=== PATIENT | male | born 1950 ===

== ENCOUNTER 2017-03-01 12:24 | Inpatient (IN) | payer MEDICARE ==
--- NOTE | 2017-03-01 13:23 | ED PDOC ---
HPI: General Adult Time Seen by Provider: 03/01/17 12:36 Chief Complaint (Nursing): Upper Extremity Problem/Injury Chief Complaint (Provider): Left arm pain, chest pain History Per: Patient History/Exam Limitations: no limitations Onset/Duration Of Symptoms: Days (2) Current Symptoms Are (Timing): Still Present Additional Complaint(s): The patient is a 66yo male, PMHx of hypertension, hyperlipidemia, hypercholesterolemia, presents to the ED for evaluation of left sided arm numbness and left chest pain present for the past two days. Reports associated nausea, intermittent shortness of breath. The patient reports taking aspirin at home (unknown dosage) and denies any palpitations. He offers no additional medical complaints. Past Medical History Reviewed: Historical Data, Nursing Documentation, Vital Signs Vital Signs: Last Vital Signs Temp 97.8 F 03/03/17 19:40 Pulse 81 03/03/17 19:40 Resp 20 03/03/17 19:40 BP 159/88 H 03/03/17 19:40 Pulse Ox 99 03/03/17 19:40 - Medical History PMH: HTN, Hypercholesterolemia, Hyperlipidemia Denies: HIV - Surgical History Surgical History: Appendectomy, Hernia Repair - Family History Family History: States: Unknown Family Hx - Immunization History Hx Tetanus Toxoid Vaccination: No Hx Influenza Vaccination: No Hx Pneumococcal Vaccination: No - Home Medications Home Medications: Ambulatory Orders Medication Instructions Recorded Aspirin [Aspirin Chewable] 81 mg PO DAILY #0 chew 02/10/15 Atorvastatin [Lipitor] 10 mg PO DAILY #0 tab 02/10/15 Enalapril Maleate [Vasotec] 10 mg PO BID 03/01/17 Cyanocobalamin [Vitamin B12 1000 1,000 mcg IM DAILY vial 03/03/17 mcg/ml Inj] - Allergies Allergies/Adverse Reactions: Allergies Allergy/AdvReac Type Severity Reaction Status Date / Time No Known Allergies Allergy Verified 03/01/17 12:26 Review of Systems ROS Statement: Except As Marked, All Systems Reviewed And Found Negative Cardiovascular: Positive for: Chest Pain. Negative for: Palpitations Respiratory: Positive for: Shortness of Breath (intermittent) Gastrointestinal: Positive for: Nausea Physical Exam - Reviewed Nursing Documentation Reviewed: Yes Vital Signs Reviewed: Yes - Physical Exam Appears: Positive for: Well, Non-toxic, No Acute Distress Head Exam: Positive for: ATRAUMATIC, NORMAL INSPECTION, NORMOCEPHALIC Skin: Positive for: Normal Color, Warm, DRY Eye Exam: Positive for: EOMI, Normal appearance, PERRL ENT: Positive for: Normal ENT Inspection Neck: Positive for: Normal, Painless ROM, Supple Cardiovascular/Chest: Positive for: Regular Rate, Rhythm Respiratory: Positive for: Normal Breath Sounds. Negative for: Respiratory Distress Gastrointestinal/Abdominal: Positive for: Normal Exam Back: Positive for: Normal Inspection Extremity: Positive for: Normal ROM, Other (LUE neurovascular sense intact). Negative for: Deformity, Swelling Neurologic/Psych: Positive for: Alert, Oriented. Negative for: Motor/Sensory Deficits - Laboratory Results Result Diagrams: 03/03/17 05:40 03/03/17 05:40 - ECG ECG: Positive for: Interpreted By Me, Viewed By Me ECG Rhythm: Positive for: Sinus Rhythm. Negative for: ST/T Changes Rate: 93 O2 Sat by Pulse Oximetry: 99 (RA) Pulse Ox Interpretation: Normal Medical Decision Making Medical Decision Making: Time: 1245 Impression: Chest pain, left arm pain Plan: -- Labs -- EKG -- Chest x-ray -- CT Cervical spine Reassess Time: 1424 CT C-Spine Impression: No evidence of acute fracture or subluxation. Evidence of focal central disc herniation at C4-C5 with mild central canal stenosis and likely mild cord compression. Mild multilevel degenerative changes including small anterior osteophyte formation. If indicated, further evaluation may be considered with MRI. Time: [address] Joseph; patient to be admitted to telemetry for chest pain. Scribe Attestation: Documented by Martine Ornelas acting as a scribe for Kami Rico MD. Provider Attestation: All medical record entries made by the Scribe were at my direction and personally dictated by me. I have reviewed the chart and agree that the record accurately reflects my personal performance of the history, physical exam, medical decision making, and the department course for this patient. I have also personally directed, reviewed, and agree with the discharge instructions and disposition. Disposition - Clinical Impression Clinical Impression: Chest pain - Patient ED Disposition Is Patient to be Admitted: Yes - Disposition Disposition Time: 15:52 Condition: STABLE - Pt Status Changed To: Hospital Disposition Of: Observation - POA Present On Arrival: None
[2017-03-01 13:26] LABS: BASO % 0.7 % (0.0-2.0); EOS # 0.1 K/uL (0.0-0.7); EOS % 1.7 % (0.0-4.0); HEMOGLOBIN 12.3 g/dL (12.0-18.0); LYMPH # 1.1 K/uL (1.0-4.3); LYMPH % 13.9 % (20.0-40.0); MEAN CELL VOLUME 96.4 fl (80.0-94.0); MEAN CORPUSCULAR HEMOGLOBIN 32.9 pg (27.0-31.0); MEAN CORPUSCULAR HGB CONC 34.1 g/dL (33.0-37.0); MEAN PLATELET VOLUME 6.7 fl (7.2-11.7); MONO # 0.4 K/uL (0.0-0.8); MONO % 5.5 % (0.0-10.0); NEUT # 5.9 K/uL (1.8-7.0); NEUT % 78.2 % (50.0-75.0); RBC 3.74 Mil/uL (4.40-5.90); RED CELL DISTRIBUTION WIDTH 12.6 % (11.5-14.5); WHITE BLOOD COUNT 7.6 K/uL (4.8-10.8)
--- NOTE | 2017-03-01 13:27 | RAD ---
HISTORY: CP COMPARISON: Chest x-ray performed 04/24/16 TECHNIQUE: Chest, one view. FINDINGS: External cardiac monitoring leads. LUNGS: Mild left apical pleural thickening. No focal consolidation. Please note that chest x-ray has limited sensitivity for the detection of pulmonary masses. PLEURA: No significant pleural effusion identified. No definite pneumothorax . CARDIOVASCULAR: Heart size appears within normal limits. Atherosclerotic calcifications of the aortic knob. OSSEOUS STRUCTURES: Mild degenerative changes. VISUALIZED UPPER ABDOMEN: Unremarkable. OTHER FINDINGS: None. IMPRESSION: No acute findings. See above.
[2017-03-01 13:43] LABS: INR 0.9 (0.9-1.2); PARTIAL THROMBOPLASTIN TIME 31.4 Seconds (25.6-37.1)
[2017-03-01 13:48] LABS: ALB/GLOB RATIO 1.3 (1.0-2.1); ALBUMIN 4.8 g/dL (3.5-5.0); ALT/SGPT 88 U/L (21-72); AST/SGOT 101 U/L (17-59); BLOOD UREA NITROGEN 8 mg/dl (9-20); CALCIUM 9.4 mg/dL (8.4-10.2); GFR AFRICAN-AMERICAN > 60; GFR NON-AFRICAN AMERICAN > 60
--- NOTE | 2017-03-01 14:25 | CT ---
CT cervical spine without IV contrast Indication: Left upper extremity numbness Comparison: None available Technique: Axial computed tomography images were obtained of the cervical spine without the use of intravenous contrast. Coronal and sagittal reformatted images were created and reviewed. This CT exam was performed using 1 or more of the falling dose reduction techniques: Automated exposure control, adjustment of the MAA and/or kV according to patient size, and/or use of iterative reconstruction technique. Radiation dose: Total exam DLP = 974.90 mGy-cm. Findings: There is no evidence of acute fracture or subluxation. Mild multilevel degenerative changes including small anterior osteophyte formation. There is evidence of focal central disc herniation at C4-C5 with mild central canal stenosis and likely mild cord compression at this level. There is preserved alignment, vertebral body height, intervertebral disc spaces. The prevertebral soft tissues and spinolaminar lines appear intact. The lateral masses are preserved. The dens tip is intact. There is proper alignment of the lateral masses of C1 with the C2 vertebral body. Included portions of the thyroid gland appear unremarkable. Included portions of lung apices demonstrates mild apical scarring. Bilateral carotid artery calcifications. Impression: No evidence of acute fracture or subluxation. Evidence of focal central disc herniation at C4-C5 with mild central canal stenosis and likely mild cord compression. Mild multilevel degenerative changes including small anterior osteophyte formation. If indicated, further evaluation may be considered with MRI.
--- NOTE | 2017-03-02 08:45 | CARD ---
APPROVED REPORT EKG Measurement Heart [id number] <Conclusion> Normal sinus rhythm Normal ECG
[2017-03-02] MEDS: Enoxaparin 40 mg Syringe SC SCH (09:05)
--- NOTE | 2017-03-02 11:22 | CP.PCM.CON ---
History of Present Illness - History of Present Illness History of Present Illness: I was asked to evaluate patient by Dr. Joseph. Patient is a 88 year old male with PMH HTN, hypercholesterolemia who presents with chest pain. The patient describes left sided chest pain and pressure which initially began 2 days ago. The symptoms started while at rest, nd radiated to the shoulder. His symptoms initally resolved spontaneously howevere with the second episode of the same chest pressure he came to the hospital. He is currently chest pain free. Review of Systems - Constitutional Constitutional: absent: As Per HPI, Anorexia, Chills, Daytime Sleepiness, Excessive Sweating, Fatigue, Fever, Frequent Falls, Headache, Increased Appetite , Lethargy, Malaise, Night Sweats, Snoring, Sleep Apnea, Weight Gain, Weight Loss, Weakness, Other - EENT Eyes: absent: As Per HPI, Blind Spots, Blurred Vision, Change in Vision, Decreased Night Vision, Diplopia, Discharge, Dry Eye, Exophthalmos, Floaters, Irritation, Itchy Eyes, Loss of Peripheral Vision, Pain, Photophobia, Requires Corrective Lenses, Sees Flashes, Spots in Vision, Tunnel Vision, Other Visual Disturbances, Loss of Vision, Other Nose/Mouth/Throat: absent: As Per HPI, Epistaxis, Nasal Congestion, Nasal Discharge, Nasal Obstruction, Nasal Trauma, Nose Pain, Post Nasal Drip, Sinus Pain, Sinus Pressure, Bleeding Gums, Change in Voice, Dental Pain, Dry Mouth, Dysphagia, Halitosis, Hoarsness, Lip Swelling, Mouth Lesions, Mouth Pain, Odynophagia, Sore Throat, Throat Swelling, Tongue Swelling, Facial Pain, Neck Pain, Neck Mass, Other - Cardiovascular Cardiovascular: Chest Pain - Respiratory Respiratory: absent: As Per HPI, Cough, Dyspnea, Hemoptysis, Dyspnea on Exertion , Wheezing, Snoring, Stridor, Pain on Inspiration, Chest Congestion, Excessive Mucous Production, Change in Mucous Color, Pain with Coughing, Other - Gastrointestinal Gastrointestinal: absent: As Per HPI, Abdominal Pain, Belching, Bloating, Change in Bowel Habits, Change in Stool Character, Coffee Ground Emesis, Constipation, Cramping, Diarrhea, Dyspepsia, Dysphagia, Early Satiety, Excessive Flatus, Fecal Incontinence, Heartburn, Hematemesis, Hematochezia, Loose Stools, Melena, Nausea, Odynophagia, Temesmus, Vomiting, Other - Genitourinary Genitourinary: absent: As Per HPI, Change in Urinary Stream, Difficulty Urinating, Dysuria, Flank Pain, Hematuria, Pyuria, Nocturia, Urinary Incontinence, Urinary Frequency, Urinary Hesitance, Urinary Urgency, Voiding Freq/Small Amts, Freq UTI, Hx Renal/Bladder Calculi, Hx /Renal Surgery, Bladder Distension, Other - Musculoskeletal Musculoskeletal: absent: As Per HPI, Abnormal Gait, Arthralgias, Atrophy, Back Pain, Deformity, Joint Swelling, Limited Range of Motion, Loss of Height, Muscle Cramps, Muscle Weakness, Myalgias, Neck Pain, Numbness, Radiating Pain into Limb, Stiffness, Tingling, Other - Integumentary Integumentary: absent: As Per HPI, Acne, Alopecia, Bleeding Lesions, Change in Hair, Change in Nails, Change in Pigmentation, Changing Lesions, Dry Skin, Erythema, Furuncle, Hirsutism, Lesions, New Lesions, Non-Healing Lesions, Photosensitivity, Pruritus, Rash, Skin Pain, Skin Ulcer, Sores, Striae, Swelling , Unusual Bruising, Wounds, Jaundice, Other - Neurological Neurological: absent: As Per HPI, Abnormal Gait, Abnormal Hearing, Abnormal Movements, Abnormal Speech, Behavioral Changes, Burning Sensations, Confusion, Convulsions, Disequilibrium, Dizziness, Numbness, Focal Weakness, Frequent Falls , Headaches, Lack of Coordination, Loss of Vision, Memory Loss, Paresthesias, Radicular Pain, Restless Legs, Sensory Deficit, Syncope, Tingling, Tremor, Vertigo, Weakness, Other Visual Disturbances, Other - Psychiatric Psychiatric: absent: As Per HPI, Abnormal Sleep Pattern, Anhedonia, Anxiety, Auditory Hallucinations, Behavioral Changes, Change in Appetite, Change in Libido, Confusion, Depression, Difficulty Concentrating, Hallucinations, Homicidal Ideation, Hopelessness, Irritability, Memory Loss, Mood Swings, Panic Attacks, Paranoia, Suicidal Ideation, Visual Hallucinations, Tactile Hallucinations, Other - Endocrine Endocrine: absent: As Per HPI, Change in Body Appearance, Change in Libido, Cold Intolorance, Deepening of Voice, Excessive Sweating, Fatigue, Flushing, Heat Intolorance, Increase in Ring/Shoe/Hat Size, Palpitations, Polydipsia, Polyphagia, Polyuria, Other - Hematologic/Lymphatic Hematologic: absent: As Per HPI, Easy Bleeding, Easy Bruising, Lymphadenopathy, Other Past Patient History - Infectious Disease Hx of Infectious Diseases: None - Past Medical History & Family History Past Medical History?: Yes - Past Social History Smoking Status: Never Smoked - CARDIAC Hx Cardiac Disorders: Yes Hx Hypercholesterolemia: Yes Hx Hypertension: Yes - PULMONARY Hx Respiratory Disorders: No - NEUROLOGICAL Hx Neurological Disorder: No - HEENT Hx HEENT Problems: Yes Other/Comment: wears glasses - RENAL Hx Chronic Kidney Disease: No - ENDOCRINE/METABOLIC Hx Endocrine Disorders: No - HEMATOLOGICAL/ONCOLOGICAL Hx Blood Disorders: No Hx Human Immunodeficiency Virus (HIV): No - INTEGUMENTARY Hx Dermatological Problems: No - MUSCULOSKELETAL/RHEUMATOLOGICAL Hx Musculoskeletal Disorders: No Hx Falls: No - GASTROINTESTINAL Hx Gastrointestinal Disorders: No - GENITOURINARY/GYNECOLOGICAL Hx Genitourinary Disorders: No - PSYCHIATRIC Hx Psychophysiologic Disorder: No Hx Substance Use: No - SURGICAL HISTORY Hx Appendectomy: Yes Other/Comment: hernia repair - ANESTHESIA Hx Anesthesia: Yes Hx Anesthesia Reactions: No Hx Malignant Hyperthermia: No Meds Allergies/Adverse Reactions: Allergies Allergy/AdvReac Type Severity Reaction Status Date / Time No Known Allergies Allergy Verified 03/01/17 12:26 - Medications Medications: Current Medications Aspirin (Aspirin Chewable) 81 mg PO DAILY [facility] Last Admin: 03/02/17 09:05 Dose: 81 mg Atorvastatin Calcium (Lipitor) 10 mg PO DAILY [facility] Last Admin: 03/02/17 09:05 Dose: 10 mg Enalapril Maleate (Vasotec) 10 mg PO BID [facility] Last Admin: 03/02/17 09:05 Dose: 10 mg Enoxaparin Sodium (Lovenox) 40 mg SC DAILY [facility] PRN Reason: Protocol Last Admin: 03/02/17 09:05 Dose: 40 mg Physical Exam - Constitutional Appears: Non-toxic - Head Exam Head Exam: NORMAL INSPECTION - Eye Exam Eye Exam: Normal appearance - ENT Exam ENT Exam: Mucous Membranes Moist - Neck Exam Neck exam: Positive for: Full Rom - Respiratory Exam Respiratory Exam: NORMAL BREATHING PATTERN - Cardiovascular Exam Cardiovascular Exam: REGULAR RHYTHM - GI/Abdominal Exam GI & Abdominal Exam: Normal Bowel Sounds - Rectal Exam Rectal Exam: Deferred - Extremities Exam Extremities exam: Negative for: pedal edema - Back Exam Back exam: NORMAL INSPECTION - Neurological Exam Neurological exam: Alert, Oriented x3 - Psychiatric Exam Psychiatric exam: Normal Affect - Skin Skin Exam: Normal Color Results - Vital Signs Recent Vital Signs: Last Vital Signs Temp 98 F 03/02/17 08:08 Pulse 59 L 03/02/17 08:08 Resp 18 03/02/17 08:08 BP 122/77 03/02/17 08:08 Pulse Ox 99 03/02/17 08:08 - Labs Result Diagrams: 03/01/17 13:15 03/01/17 13:15 Labs: Laboratory Results - last 24 hr 03/01/17 03/02/17 21:20 05:30 Troponin I < 0.0120 < 0.0120 Vitamin B12 272 TSH 3rd Generation 3.88 - EKG Data EKG Interpreted by: Myself EKG shows normal: Sinus rhythm Assessment & Plan (1) Chest pain Assessment and Plan: patient has ruled out for myocardial infarction. However he has symptoms which are concerning for unstable angina and CAD. I recommend inpatient nuclear perfusion imaging. Status: Acute (2) Hypertension Assessment and Plan: blood pressure control Status: Acute
--- NOTE | 2017-03-02 16:35 | CP.PCM.CON ---
History of Present Illness - History of Present Illness History of Present Illness: left arm pain 3 days consult dictated Past Patient History - Infectious Disease Hx of Infectious Diseases: None - Past Medical History & Family History Past Medical History?: Yes - Past Social History Smoking Status: Never Smoked - CARDIAC Hx Cardiac Disorders: Yes Hx Hypercholesterolemia: Yes Hx Hypertension: Yes - PULMONARY Hx Respiratory Disorders: No - NEUROLOGICAL Hx Neurological Disorder: No - HEENT Hx HEENT Problems: Yes Other/Comment: wears glasses - RENAL Hx Chronic Kidney Disease: No - ENDOCRINE/METABOLIC Hx Endocrine Disorders: No - HEMATOLOGICAL/ONCOLOGICAL Hx Blood Disorders: No Hx Human Immunodeficiency Virus (HIV): No - INTEGUMENTARY Hx Dermatological Problems: No - MUSCULOSKELETAL/RHEUMATOLOGICAL Hx Musculoskeletal Disorders: No Hx Falls: No - GASTROINTESTINAL Hx Gastrointestinal Disorders: No - GENITOURINARY/GYNECOLOGICAL Hx Genitourinary Disorders: No - PSYCHIATRIC Hx Psychophysiologic Disorder: No Hx Substance Use: No - SURGICAL HISTORY Hx Appendectomy: Yes Other/Comment: hernia repair - ANESTHESIA Hx Anesthesia: Yes Hx Anesthesia Reactions: No Hx Malignant Hyperthermia: No Meds Allergies/Adverse Reactions: Allergies Allergy/AdvReac Type Severity Reaction Status Date / Time No Known Allergies Allergy Verified 03/01/17 12:26 - Medications Medications: Current Medications Aspirin (Aspirin Chewable) 81 mg PO DAILY [facility] Last Admin: 03/02/17 09:05 Dose: 81 mg Atorvastatin Calcium (Lipitor) 10 mg PO DAILY [facility] Last Admin: 03/02/17 09:05 Dose: 10 mg Enalapril Maleate (Vasotec) 10 mg PO BID [facility] Last Admin: 03/02/17 09:05 Dose: 10 mg Enoxaparin Sodium (Lovenox) 40 mg SC DAILY [facility] PRN Reason: Protocol Last Admin: 03/02/17 09:05 Dose: 40 mg Results - Vital Signs Recent Vital Signs: Last Vital Signs Temp 97.9 F 03/02/17 16:02 Pulse 73 03/02/17 16:02 Resp 18 03/02/17 16:02 BP 125/74 03/02/17 16:02 Pulse Ox 99 03/02/17 16:02 - Labs Result Diagrams: 03/01/17 13:15 03/01/17 13:15 Assessment & Plan (1) Cervical radiculopathy at C6 Assessment and Plan: no signs of myelopathy MRI am continue the pesent managment emg/ncv as op not a surgical candidate Status: Acute
[2017-03-03 06:57] LABS: HEMOGLOBIN 12.3 g/dL (12.0-18.0); MEAN CELL VOLUME 95.6 fl (80.0-94.0); MEAN CORPUSCULAR HEMOGLOBIN 33.3 pg (27.0-31.0); MEAN CORPUSCULAR HGB CONC 34.8 g/dL (33.0-37.0); RBC 3.68 Mil/uL (4.40-5.90); RED CELL DISTRIBUTION WIDTH 12.9 % (11.5-14.5); WHITE BLOOD COUNT 6.3 K/uL (4.8-10.8)
[2017-03-03 07:34] LABS: ALB/GLOB RATIO 1.2 (1.0-2.1); ALBUMIN 4.5 g/dL (3.5-5.0); ALT/SGPT 86 U/L (21-72); AST/SGOT 79 U/L (17-59); BLOOD UREA NITROGEN 12 mg/dl (9-20); CALCIUM 9.2 mg/dL (8.4-10.2); GFR AFRICAN-AMERICAN > 60; GFR NON-AFRICAN AMERICAN > 60
[2017-03-03] MEDS: Enoxaparin 40 mg Syringe SC SCH (08:56)
--- NOTE | 2017-03-03 15:14 | MRI ---
PROCEDURE: MRI of the cervical spine dated 03/03/2017. HISTORY: Cervical myelopathy. COMPARISON: Comparison made with CT scan cervical spine dated 03/01/2017. TECHNIQUE: Multiecho multiplanar sequences were performed through the cervical spine without the use of intravenous contrast. . Note that the exam is limited by motion artifact. FINDINGS: The current study reveals no acute compression fractures no retropulsed fragments. Vertebral bodies exhibit normal stature and alignment. Facets normally aligned. At the C4-C5 level, there is relatively adequate disc height and mild disc desiccation. Moderate-sized central and bilateral of presumed acute disc herniation results in moderate cord compression and mild central canal stenosis. Note that the overall pre-existing central canal excluded disc herniations quite capacious. . There appears to be superior subligamentous extension of disc over short distance dorsal to the inferior 1/2-- 1/ 3 of the C4 segment. Moderate left facet arthropathy and mild right facet arthropathy. Hypertrophic left greater than right. Minimal degenerative squaring of the uncovertebral joints left greater than right. . Right exit foramen appears adequate. Left exit foramen appears narrowed though the narrowing appears more significant on CT scan. Questionable subtle increased T2 signal within the cervical spinal cord at this level. Findings could represent artifact however mild venous congestion or edema. Clinical correlation recommended. At the C5-C6 level, there is mild disc desiccation and minor posterior disc space narrowing. Small central and bilateral disc bulge indents the ventral surface of the thecal sac and appears to minimally indent the ventral surface of the cord. Overall central canal appears adequate at this level. The uncovertebral joints are mildly hypertrophic left greater than right. Moderate left facet arthropathy and mild right facet arthropathy. Right exit foramen is marginal to adequate on the left exit foramen appears narrowed. At the C6-C7 level, there is mild disc desiccation however disc space height is relatively maintained. Small broad-based disc bulge ridge complex indents the ventral surface of thecal sac reaching and minimally if at all flattening the ventral surface of the spinal cord. The overall central canal at this level is minimally narrowed. Facet joints are also hypertrophic left greater than right. Exit foramina appear adequate on the left and marginal to slightly narrowed on the right. At the C3-C4 level, there is disc desiccation. Disc space height maintained. Small central and bilateral (left slightly larger than right) focal disc bulge contiguous with mildly hypertrophic uncovertebral joints left greater than right. The disc indents the ventral surface of the thecal sac though does not cause significant canal compromise nor cord compression. The facets are mildly hypertrophic left greater than right. Right exit foramen is adequate. Left exit foramen is mildly stenotic. At the C2-C3 level, there is mild age related disc desiccation. Disc space height is relatively maintained. No disc herniation or significant disc bulge. Uncovertebral joints exhibit minimal degenerative squaring. Left facet is hypertrophic with mild overgrowth of right facet. Exit foramina appear marginal to minimally narrowed on the left and marginal to adequate on the right. Impression: This level limited motion degraded study. There is a moderate sized disc herniation at the C4-C5 level with some mild superior subligamentous extension of disc material over short distance as detailed above. The disc does result in cord compression. Questionable mild increased T2 signal change within the cervical spinal cord at level; rule out artifact versus mild venous congestion or mild edema. Mild multilevel degenerative spondylosis seen at the remaining levels of. See above discussion for additional the details and findings. Note that these findings were discussed with 4 Umair Finney at approximately 3:05P.m written down and read back verification.
--- NOTE | 2017-03-03 16:14 | CARD ---
APPROVED REPORT Protocol: LEXISCAN Test Type: Stress Nuclear Medications: ASA 81mg, Atorvastatin 10mg, Enalapril Maleate 10mg Medical History: Hypertension, Hyperlipidemia, Hypercholesterolemia Target HR: 154 bpm Resting ECG: normal Resting Heart Rate: 75 bpm Resting Blood Pressure: 177/85mmHg submaximum (85%): 131 bpm TEST SUMMARY PREINJECTPRE-INJEC07:[id number]/85.0. [id number]/85.0. INJECTIONNS FLUSH00:[id number]/81.0. INJECTIONNUC MED00:[id number]/81.0. [id number]/78.0. PROCEDURE Pharmacologic stress testing was performed using 0.4mg per 5ml of regadenoson given intravenously over 7-10 seconds. POST EXERCISE Reason for Termination: completed the test Target HR: No Max HR: 92 bpm 68% of Maximum Predicted HR: 154 bpm Exercise duration: 01:00 min:sec, 0 Stage Exercise capacity: 1.0METs Max Blood Pressure: 182/88mmHg Blood Pressure response to exercise: pharmacological Heart Rate response to exercise: pharmacological Chest Pain: No, none Angina index: 0 Arrhythmia: No, none ST Change: No, none Deviation: 0 mm Clinical Indications Under Appropriate Use Criteria Cest pain and left arm numbness Stress EKG Interpretation Normal pharmacological portion of the stress test. EXAM: Myocardial Perfusion REST/STRESS Image QualityGood Imaging Protocol The imaging protocol used to acquire images was Rest Tc-99m/stress Tc-99m 1 day Rest Spect myocardial perfusion imaging was performed in supine position 60 minutes following the injection of 10 mCi of Tc-99 Myoview. Time of rest injection: 8:26 Time of rest imagin:27 At peak stress, the patient was injected intravenously with 30mCi of Tc-99 tetrofosmin after an infusion time of minutes and seconds. Time of stress injection: 11:43 Time of stress imagin:00 Gated Stress Spect was performed 90 minutes after intravenous Tc-99 Myoview injection. The images were gated to evaluate regional wall motion and calculate ventricular ejection fraction. NUCLEAR IMAGE INTERPRETATION The rest and stress images show normal perfusion, normal contraction and thickening. LV Perfusion The perfusion of the left ventricle was normal on the standard three tomographic images and the raw Bullseye plot images. Wall Motion normal LVEF of 73% CONCLUSION 1. The patient is a 66 year old male referred for a pharmacological stress test after being admitted to [facility] for chest pain and left arm pain. He also has a history of hypertension and hyperlipidemia. His medicines include aspirin, enalapril and atorvastatin. The resting EKG shows normal sinus rhythm. The patient was hooked up to a continuous monitoring specialist and lexiscan at a dose of 0.4 mg/5ml was injected intravenously. The patient tolerated the lexiscan well without any chest pain or significant EKG changes. The vital signs were stable and there weren't any side effects from the lexiscan. The nuclear scans showed normal perfusion of the left ventricle. The LVEF on the gated study was 73%. 2. Impression: Negative pharmacological stress test for ischemia. LVEF of 73%. Recommendation medical treatment0
--- NOTE | 2017-03-03 18:51 | CP.PCM.PN ---
Subjective - Date & Time of Evaluation Date of Evaluation: 03/03/17 Time of Evaluation: 18:30 - Subjective Subjective: patient is doing well without chest pain. Objective - Vital Signs/Intake and Output Vital Signs (last 24 hours): Temp Pulse Resp BP Pulse Ox 98.2 F 95 H 18 150/85 100 03/03/17 15:52 03/03/17 15:52 03/03/17 15:52 03/03/17 15:52 03/03/17 15:52 - Medications Medications: Current Medications Aspirin (Aspirin Chewable) 81 mg PO DAILY [facility] Last Admin: 03/03/17 12:47 Dose: 81 mg Atorvastatin Calcium (Lipitor) 10 mg PO DAILY [facility] Last Admin: 03/03/17 12:47 Dose: 10 mg Cyanocobalamin (Vitamin B12 1000 Mcg/Ml Inj) 1,000 mcg IM DAILY [facility] Last Admin: 03/03/17 12:47 Dose: 1,000 mcg Enalapril Maleate (Vasotec) 10 mg PO BID [facility] Last Admin: 03/03/17 17:09 Dose: 10 mg Enoxaparin Sodium (Lovenox) 40 mg SC DAILY [facility] PRN Reason: Protocol Last Admin: 03/03/17 08:56 Dose: 40 mg - Labs Labs: 03/03/17 05:40 03/03/17 05:40 PT 10.0 Seconds (9.8-13.1) 03/01/17 13:15 INR 0.9 (0.9-1.2) 03/01/17 13:15 APTT 31.4 Seconds (25.6-37.1) 03/01/17 13:15 - Constitutional Appears: Non-toxic - Head Exam Head Exam: NORMAL INSPECTION - Eye Exam Eye Exam: Normal appearance - ENT Exam ENT Exam: Mucous Membranes Moist - Neck Exam Neck Exam: Full ROM - Respiratory Exam Respiratory Exam: NORMAL BREATHING PATTERN - Cardiovascular Exam Cardiovascular Exam: REGULAR RHYTHM - GI/Abdominal Exam GI & Abdominal Exam: Normal Bowel Sounds - Rectal Exam Rectal Exam: Deferred - Back Exam Back Exam: NORMAL INSPECTION - Neurological Exam Neurological Exam: Alert - Psychiatric Exam Psychiatric exam: Normal Affect - Skin Skin Exam: Normal Color Assessment and Plan (1) Chest pain Assessment & Plan: nuclear stress test is normal. The left ventricular function is normal. Patient is stable for discharge. Status: Acute (2) Hypertension Assessment & Plan: blood pressure control Status: Acute
[2017-03-03 19:41] VITALS: BP 159/88; RESP 20; TEMP 97.8; O2SAT 99
--- NOTE | 2017-03-04 05:17 | CON ---
DATE OF CONSULT: 03/03/2017 REASON FOR CONSULTATION: Herniated disk at C4-C5. HISTORY OF PRESENT ILLNESS: The patient is a 66-year-old gentleman who is admitted to the hospital a couple of days ago, having had a 2-day history of left-sided chest pain with numbness in his left arm. He had some associated shortness of breath and nausea as well. During his workup, a CAT scan of the neck was done, which showed a herniated disk at C4-C5. Subsequent MRI was done as well and a consultation was requested. The patient states he has no complaints of neck pain whatsoever. He states that the only time he had any symptoms of left arm was when he had the associated left-sided chest pain. PAST MEDICAL HISTORY: Significant for hypertension, hypercholesterolemia, and hyperlipidemia. MEDICATIONS AT HOME: Include baby aspirin, Lipitor, and Vasotec. ALLERGIES: No known medical allergies. PAST SURGICAL HISTORY: Significant for herniorrhaphy as well as appendectomy. PHYSICAL EXAMINATION: He has full flexion, extension, lateral rotation of his neck without any complaints whatsoever. He moves both upper extremities fully and actively. Sensation is intact to light touch everywhere. He has excellent motor strength, 5/5 in all groups tested, and very strong icer air conditioning strength. He has good distal pulses. No other abnormalities noted. MRI shows a small central disk at C4-C5 with some mild compression of the cord. IMPRESSION: Herniated disk at C4-C5. It is uncertain how long this abnormality has been there, but the patient is completely asymptomatic at this time. Therefore, this can be followed as an outpatient. Certainly, he is at slight increased risk for damage to the spinal cord with some significant traumatic event, but again, at this point with him undergoing his cardiac workup and being completely asymptomatic, there is no reason to consider any other intervention at this time. Thank your for allowing me to participate in the care of your patient. Abdullahi Sanchez MD
--- NOTE | 2017-03-04 09:01 | CON ---
DATE: 03/02/2017 The patient's room number 418. ATTENDING PHYSICIAN: Dr. Louie Joseph REASON FOR CONSULTATION: Left arm numbness. CHIEF COMPLAINT: The patient was brought into [facility] with history of three days of left arm numbness and pain with chest pain. At that point, I was called in to evaluate him for further management. HISTORY OF PRESENT ILLNESS: Mr. Wilbert Mckeon is a 66-year-old right-handed male presenting with three days history of episodic left arm pain. He described the pain traveling down from his shoulder down to his second and third digit. Sometimes the pain traveling down to the left side of the chest and lateral part of the chest wall. This pain not associating with shortness of breath or palpitations. However, he has some sweating episodes due to this problem. There is pain scale of 6/10. He got a similar episode a year ago, which lasted for about few minutes and then disappeared. No history of neck pain. No history of fall. No history of involved in automobile accident or work related injuries, having been treated by chiropractor in the past. PAST MEDICAL HISTORY: Hypertension and dyslipidemia. SOCIAL HISTORY: Denies smoking. No history of alcohol use. MEDICATIONS: Aspirin, atorvastatin,Lovenox and enalapril. REVIEW OF SYSTEMS: As per H&P. PHYSICAL EXAMINATION VITAL SIGNS: Blood pressure 125/74, pulse91, respiratory rate 18, temperature 97.9, pulse rate 73 and regular. NECK: Supple. No carotid bruits. CARDIOPULMONARY: Regular. LUNGS: Bilateral air entry. EXTREMITIES: No edema on legs. NEUROLOGIC: He is awake, alert and oriented to person, place and time. Speech is clear. within normal. Cranial nerves examination which include intact pupil, reactive to light. Extraocular movements are normal. No nystagmus. No facial or sensory deficit. No facial asymmetry. Hearing is normal. Tongue is midline. Good grasp. MOTOR: No drift. symmetric on either sides. Deep tendon reflexes. Right biceps 2+ and left side 1. Right brachial radialis 2+ and left side is absent. Triceps 3+ on the right side and 2+ on the left side. Knees are 2+. Both ankles are trace. Plantars are downgoing. SENSORY EXAMINATION: No clear evidence of dermatomal sensory loss. Coordination; [id number] intact. Gait is normal. CONCLUSION: Upon reviewing his neurological examination, Mr. Wilbert Mckeon presenting with left C6 radiculopathy without any myelopathy signs at present. LABORATORY DATA: His CT of the cervical spine was reported as herniated disc at C4 and C5 level with mild cord impingement. However, he does have some cervical stenosis also noted at the same level. There is clear neuroforaminal stenosis on the CAT scan findings. Blood workup: WBC 7.6, hemoglobin 12.3, hematocrit 36.1, platelet 336. PT 10.0, INR 0.9 and PTT 31.4. Sodium 137, potassium 5.0, chloride 101, bicarbonate 26, BUN 8, creatinine 0.8, GFR more than 60. Troponin 0.012. B12 272. TSH 3.88. RECOMMENDATION: 1. If the patient is clinically stable and if medically is also clear, he can go home and MRI can be done as an outpatient. However, he stays in the hospital, definitely the patient should have MRI of the cervical spine before the discharge. 2. After diagnostic surgeries including nerve conducting studies and electromyography which can be done to assess the extend of his pathology, which can be done as an outpatient. 3. As for the pain control, the patient is tolerating the current way of management. 4. Considering his clinical presentation, the patient is not a candidate for neurosurgical intervention. 5. If everything is stable, the patient will follow with me as an outpatient. Dudley Cruz MD MTDAlvarado
--- NOTE | 2017-03-04 09:55 | DS ---
NEUROLOGICAL PROBLEMS: Abnormal CAT scan of the neck, possible cervical radiculopathy. VITAL SIGNS: Blood pressure 150/85; mean arterial pressure of 106; respiratory rate 18; temperature 98.2; pulse rate 95, regular. The patient does not show any neck pain. No focal weakness. No chest pain also. The patient's examination unchanged compared with my yesterday's exam. The patient does not have any clinical evidence of radiculopathy or myelopathy at present. MRI of the cervical spine being reviewed by me, which showed C4-C5 herniated disk with impingement of the cord. The patient's examination does not correlate with the radiological findings. The patient also has evidence of disk disease from C2-C3 and C5-C6 region. When medically stable, the patient can be discharged. The patient should have electrodiagnostic studies, which include electromyography and nerve condition studies, to be done as an outpatient to assess as well his extent of disease problem in the neck. Considering he is asymptomatic patient, patient does not need any neurosurgical intervention. Dudley Cruz MD
--- NOTE | 2017-03-04 14:42 | HP ---
Patient was admitted on 03/01/2017 ID:[id number] Chief complaint: Chest pain and left upper extremity pain. History of present illness: *, hypertension. He was having left sided numbness and left sided chest pain for about 2 days, which did not improve. The patient was brought into the emergency room and was admitted for further management. Previous * for left sided chest pain, left arm numbness and occasional shortness of breath and nausea. (*Review of systems) is otherwise negative for headache, syncope, loss of consciousness, nausea, vomiting, constipation, any lower extremity pain,*, otherwise, unremarkable). Past medical history: Significant for high cholesterol and hypertension Past surgical history: Remarkable for hernia and appendix. Personal history: Patient is currently a non-smoker, no known substance abuse Medication: Patient is on Lipitor, and aspirin. Patient is not allergic to any medication. Family history: Noncontributory Physical exam: *Male. No acute distress. Vital signs, temperature 98.2, (* 20), blood pressure 128/76. HEENT exam , no heart myopathy, no new *, * Heart exam: (*As soon as ) . . Abdomen is soft, non tender, hepatomegaly, ( no fluid bowel sounds), Extremity exam: No edema, (no lower extremity tenderness), ischemia, (no paresthesia in the left upper extremity) (*Neurological) exam: Patient is alert and oriented. There is no sign of any (* acute focal, motor sensory or neurological deficit) Diagnosticdata review: Electrophoresis Came up to be 12 out of the 36, 336). PT 10, PTT 31, Sodium 37, Potassium 137, Chloride (*100), (*Hematocrit 176), (*V and eight) Cardiac negative so far. from CAT scans shows * disc herniation with mild cord compression. CHest X-rays clear, EKG does not show any acute SVT changes Impression: *Spinal/cervical cord compression. Chest pain. Rule out coronary artery (*disease), hypertension, cholesterol. At present, patient has no clinical sign of cord compression. We're awaiting neurosurgery and cardiology. Plan:*Discussed with patient KENNETH
--- NOTE | 2017-03-10 16:01 | PN ---
Dr. Louie Joseph - Progress Note HPI: Pt was seen and examined, and the consult is noted and appreciated. The neurology and cardiology consults were appreciated and noted as well. Pt [22.9__ 25.5]. Pt denies any [27.4 28.3 ], numbness, or any neurological symptoms at this time. PE: Upon physical examination the pt appears to be in NAD, vital signs are stable and the heart is normal with RRR. The lungs are clear, extremities are nontender , no clubbing, no edema and no acute ischemia. The rest of the exam is essentially unchanged. Diagnostic Data: All available diagnostic data has been reviewed and noted. [54.1 60.1] .According to the neurologist, the pt does not need any neurological surgical intervention. If there is stress pt should refer to cardiology, other than that the pt is medically stable. Louie Joseph MD
--- NOTE | 2017-03-11 12:58 | CP.PCM.PN ---
Subjective - Date & Time of Evaluation Date of Evaluation: 03/03/17 - Subjective Subjective: Pt was seen and examined, and the consult is noted and appreciated. The neurology and cardiology consults were appreciated and noted as well. Pt . Pt denies any , numbness, or any neurological symptoms at this time. Objective - Vital Signs/Intake and Output Vital Signs (last 24 hours): Temp Pulse Resp BP Pulse Ox 97.8 F 81 20 159/88 H 99 03/03/17 19:40 03/03/17 19:40 03/03/17 19:40 03/03/17 19:40 03/03/17 19:40 - Labs Labs: 03/03/17 05:40 03/03/17 05:40 PT 10.0 Seconds (9.8-13.1) 03/01/17 13:15 INR 0.9 (0.9-1.2) 03/01/17 13:15 APTT 31.4 Seconds (25.6-37.1) 03/01/17 13:15 - Additional Findings Additional findings: Upon physical examination the pt appears to be in NAD, vital signs are stable and the heart is normal with RRR. The lungs are clear, extremities are nontender , no clubbing, no edema and no acute ischemia. The rest of the exam is essentially unchanged. Assessment and Plan - Assessment and Plan (Free Text) Assessment: All available diagnostic data has been reviewed and noted. .According to the neurologist, the pt does not need any neurological surgical intervention. If there is stress pt should refer to cardiology, other than that the pt is medically stable. Patient was personally seen and examined by me in rounds with residents. Available labs and diagnostic data reviewed. Case, Patient's condition and management plan discussed with residents in rounds. Agree with resident's documentation. Plan: As ordered. Louie Joseph MD
[2017-03-11 14:09] VITALS: PULSE 93
== END 2017-03-03 20:00 | disposition home or self-care (01) | DRG 74 ==
LOC: H.ER 12:24 → H.ERHOLD 15:52 → H.TEL 18:04 → OBSVTOIN 03-02 12:01
PROVIDERS: ADMIT Internal Medicine; ATTEND Internal Medicine
DX: M54.12 Radiculopathy, cervical region (principal); M50.021 Cervical disc disorder at C4-C5 level with myelopathy; I10 Essential (primary) hypertension; R07.9 Chest pain, unspecified; E78.00 Pure hypercholesterolemia, unspecified; E78.5 Hyperlipidemia, unspecified

== ENCOUNTER 2018-01-13 12:24 | Inpatient (IN) | payer MEDICARE ==
[2018-01-13 14:59] LABS: BASO % 0.6 % (0.0-2.0); EOS % 0.5 % (0.0-4.0); HEMOGLOBIN 11.6 g/dL (12.0-18.0); LYMPH % 12.4 % (20.0-40.0); MEAN CELL VOLUME 93.2 fl (80.0-94.0); MEAN CORPUSCULAR HEMOGLOBIN 31.9 pg (27.0-31.0); MEAN CORPUSCULAR HGB CONC 34.2 g/dL (33.0-37.0); MEAN PLATELET VOLUME 7.9 fl (7.2-11.7); MONO # 0.6 K/uL (0.0-0.8); MONO % 7.4 % (0.0-10.0); NEUT # 6.1 K/uL (1.8-7.0); NEUT % 79.1 % (50.0-75.0); RBC 3.65 Mil/uL (4.40-5.90); RED CELL DISTRIBUTION WIDTH 13.1 % (11.5-14.5); WHITE BLOOD COUNT 7.8 K/uL (4.8-10.8)
[2018-01-13 15:14] LABS: ALB/GLOB RATIO 1.2 (1.0-2.1); ALBUMIN 4.4 g/dL (3.5-5.0); ALT/SGPT 63 U/L (21-72); AST/SGOT 63 U/L (17-59); BLOOD UREA NITROGEN 8 mg/dl (9-20); CALCIUM 8.8 mg/dL (8.4-10.2); GFR AFRICAN-AMERICAN > 60; GFR NON-AFRICAN AMERICAN > 60
--- NOTE | 2018-01-13 15:43 | RAD ---
HISTORY: Chest pain COMPARISON: 03/01/2017. FINDINGS: LUNGS: The lungs are well inflated and clear. PLEURA: No significant pleural effusion identified, no pneumothorax apparent. CARDIOVASCULAR: Normal. OSSEOUS STRUCTURES: No significant abnormalities. VISUALIZED UPPER ABDOMEN: Normal. OTHER FINDINGS: None. IMPRESSION: No active pulmonary disease.
--- NOTE | 2018-01-13 16:06 | ED PDOC ---
HPI: Chest Pain Time Seen by Provider: 01/13/18 13:00 Chief Complaint (Nursing): Chest Pain Chief Complaint (Provider): Chest pain History Per: Patient History/Exam Limitations: no limitations Current Symptoms Are (Timing): Still Present Additional Complaint(s): 67 year old male with a past medical history of hypertension and cholesterol presented to the ED complaining of discomfort on the chest since 9 am today with occ. palpitations, pt has no pain right now.. Patient reports his blood pressure is elevated and is concerned. Denies SOB and cough. PCP: Louie Najera Past Medical History Reviewed: Historical Data, Nursing Documentation, Vital Signs Vital Signs: Last Vital Signs Temp 98.4 F 01/15/18 10:27 Pulse 94 H 01/15/18 11:53 Resp 20 01/15/18 08:02 BP 134/71 01/15/18 10:27 Pulse Ox 100 01/15/18 11:53 - Medical History PMH: HTN, Hypercholesterolemia, Hyperlipidemia Denies: HIV, Chronic Kidney Disease - Surgical History Surgical History: Appendectomy, Hernia Repair - Family History Family History: States: Unknown Family Hx - Social History Current smoker - smoking cessation education provided: No Alcohol: None Drugs: Denies - Immunization History Hx Tetanus Toxoid Vaccination: No Hx Influenza Vaccination: No Hx Pneumococcal Vaccination: No - Home Medications Home Medications: Ambulatory Orders Medication Instructions Recorded Aspirin [Ecotrin] 81 mg PO DAILY 01/13/18 Atorvastatin [Lipitor] 10 mg PO HS 01/13/18 Enalapril Maleate [Vasotec] 10 mg PO BID 01/13/18 - Allergies Allergies/Adverse Reactions: Allergies Allergy/AdvReac Type Severity Reaction Status Date / Time No Known Allergies Allergy Verified 03/01/17 12:26 PRISCA Risk Score for UA/NSTEMI - PRISCA Risk Score Age > 64: YES 3 or more CAD Risk Factors: NO Known CAD (Stenosis greater than 50%): NO Aspirin use in past 7 days: NO Severe Angina: NO EKG ST changes greater than 0.5mm: NO Positive Cardiac Marker: NO PRISCA Score: 1 Risk %: 5% Curb-65 Severity Score - CURB-65 Severity Score Confusion: No Bun >19mg/dl (>7mmol/L): No Respiratory Rate greater than/equal to 30: No Systolic BP <90 or Diastolic BP less than/equal 60mmHg: No Age >64: Yes Curb-65 Score: 1 Percentage 30-day mortality: 2.7% Wells Criteria for PE - Wells Criteria for Pulmonary Embolism Clinical Signs and Symptoms of DVT: No P.E is #1 Diagnosis, or Equally Likely: No Heart Rate >100: No Immobilization at least 3 days;Surgery previous 4 weeks: No Previous, objectively diagnosed PE or DVT: No Hemoptysis: No Malignancy w/treatment within 6 months, or palliative: No Total Score: 0 Review of Systems ROS Statement: Except As Marked, All Systems Reviewed And Found Negative Cardiovascular: Positive for: Chest Pain Respiratory: Negative for: Cough, Shortness of Breath Physical Exam - Reviewed Nursing Documentation Reviewed: Yes Vital Signs Reviewed: Yes - Physical Exam Appears: Positive for: Non-toxic, No Acute Distress Head Exam: Positive for: ATRAUMATIC, NORMAL INSPECTION, NORMOCEPHALIC Skin: Positive for: Normal Color, Warm, Dry Eye Exam: Positive for: Normal appearance ENT: Positive for: Normal ENT Inspection Neck: Positive for: Normal, Painless ROM Cardiovascular/Chest: Positive for: Regular Rate, Rhythm. Negative for: Murmur Respiratory: Positive for: Normal Breath Sounds. Negative for: Wheezing, Respiratory Distress Gastrointestinal/Abdominal: Positive for: Normal Exam, Soft. Negative for: Tenderness Back: Positive for: Normal Inspection. Negative for: L CVA Tenderness, R CVA Tenderness Extremity: Positive for: Normal ROM Neurologic/Psych: Positive for: Alert, Oriented. Negative for: Motor/Sensory Deficits - Laboratory Results Result Diagrams: 01/13/18 14:54 01/13/18 14:54 - ECG ECG Rhythm: Positive for: Sinus Rhythm (normal) Rate: 94 O2 Sat by Pulse Oximetry: 100 (RA) Pulse Ox Interpretation: Normal Medical Decision Making Medical Decision Making: Initial Impression: Chest pain rule out CAD given cardiac risk factors Initial Plan: CMP Troponin CBC Chest X-ray first troponin negative. ekg shows nsr at 94 bmp. 16:00 Aspirin given for cardioprotective effects and patient indicates no pain at this time. PMD and resident Dr. Saha were called and patient will be admitted for rule out cardiac arrythmia on tele. Scribe Attestation: Documented by Jimmie Osuna acting as a scribe for Mukesh Jung MD. Provider Scribe Attestation: All medical record entries made by the Scribe were at my direction and personally dictated by me. I have reviewed the chart and agree that the record accurately reflects my personal performance of the history, physical exam, medical decision making, and the department course for this patient. I have also personally directed, reviewed, and agree with the discharge instructions and disposition. Disposition - Clinical Impression Clinical Impression: Acute chest pain - Patient ED Disposition Is Patient to be Admitted: Yes Counseled Patient/Family Regarding: Studies Performed, Diagnosis - Disposition Disposition Time: 16:00 Condition: STABLE
[2018-01-13] MEDS ORDERED: Metoprolol Succinate 50 mg XL Tab PO STA (17:14)
[2018-01-14] MEDS: Enoxaparin 40 mg Syringe SC SCH (09:14)
--- NOTE | 2018-01-14 09:17 | CP.PCM.HP ---
History of Present Illness - History of Present Illness History of Present Illness: 67 yo ,m, PMh/o HTN, HLD presents c/o left side chest pain started 2 days ago, aching sensation, lasting seconds, intermittent in 2 occasions and subsided. Chest pain repeated yesterday while patient on sitting position, not radiated, no pleuritic, no reproducible, associated with mild SOB, alleviated spontaneously. He denies h/o chest pain on exertion, palpitation, n,v,abd pain. Patietn seen and examined bedside with Dr Joseph. Patient reports chest pain subsided. PMD: Dr Joseph Present on Admission - Present on Admission Any Indicators Present on Admission: No History of DVT/PE: No History of Uncontrolled Diabetes: No Urinary Catheter: No Decubitus Ulcer Present: No Review of Systems - Review of Systems All systems: reviewed and no additional remarkable complaints except - Cardiovascular Cardiovascular: Chest Pain - Respiratory Respiratory: Dyspnea Past Patient History - Infectious Disease Hx of Infectious Diseases: None - Past Medical History & Family History Past Medical History?: Yes - Past Social History Smoking Status: Never Smoked - CARDIAC Hx Cardiac Disorders: Yes Hx Hypercholesterolemia: Yes Hx Hypertension: Yes - PULMONARY Hx Respiratory Disorders: No - NEUROLOGICAL Hx Neurological Disorder: No - HEENT Hx HEENT Problems: Yes Other/Comment: wears glasses - RENAL Hx Chronic Kidney Disease: No - ENDOCRINE/METABOLIC Hx Endocrine Disorders: No - HEMATOLOGICAL/ONCOLOGICAL Hx AIDS: No Hx Human Immunodeficiency Virus (HIV): No - INTEGUMENTARY Hx Dermatological Problems: No - MUSCULOSKELETAL/RHEUMATOLOGICAL Hx Musculoskeletal Disorders: No Hx Falls: No - GASTROINTESTINAL Hx Gastrointestinal Disorders: No - GENITOURINARY/GYNECOLOGICAL Hx Genitourinary Disorders: No - PSYCHIATRIC Hx Psychophysiologic Disorder: No Hx Substance Use: No - SURGICAL HISTORY Hx Appendectomy: Yes Hx Herniorrhaphy: Yes - ANESTHESIA Hx Anesthesia: Yes Hx Anesthesia Reactions: No Hx Malignant Hyperthermia: No Has any member of the family had a problem w/ anesthesia?: No Meds Allergies/Adverse Reactions: Allergies Allergy/AdvReac Type Severity Reaction Status Date / Time No Known Allergies Allergy Verified 03/01/17 12:26 Physical Exam - Constitutional Appears: Non-toxic, No Acute Distress - Head Exam Head Exam: ATRAUMATIC, NORMOCEPHALIC - Eye Exam Eye Exam: EOMI, Normal appearance - ENT Exam ENT Exam: Mucous Membranes Moist - Neck Exam Neck exam: Positive for: Normal Inspection - Respiratory Exam Respiratory Exam: Clear to Auscultation Bilateral - Cardiovascular Exam Cardiovascular Exam: REGULAR RHYTHM, +S1, +S2 Additional comments: no reproducible chest pain - GI/Abdominal Exam GI & Abdominal Exam: Normal Bowel Sounds, Soft. absent: Guarding, Rebound - Neurological Exam Neurological exam: Alert, Oriented x3 - Psychiatric Exam Psychiatric exam: Normal Affect, Normal Mood - Skin Skin Exam: Intact Results - Vital Signs Recent Vital Signs: Last Vital Signs Temp 98.1 F 01/14/18 08:00 Pulse 54 L 01/14/18 08:00 Resp 18 01/14/18 08:00 BP 164/80 H 01/14/18 08:00 Pulse Ox 100 01/14/18 08:00 - Labs Result Diagrams: 01/13/18 14:54 01/13/18 14:54 Labs: Laboratory Results - last 24 hr 01/13/18 01/13/18 01/13/18 14:54 14:54 23:03 WBC 7.8 RBC 3.65 L Hgb 11.6 L Hct 34.0 L MCV 93.2 D MCH 31.9 H MCHC 34.2 RDW 13.1 Plt Count 344 MPV 7.9 Neut % (Auto) 79.1 H Lymph % (Auto) 12.4 L [place] % (Auto) 7.4 Eos % (Auto) 0.5 Baso % (Auto) 0.6 Neut # (Auto) 6.1 Lymph # (Auto) 1.0 [place] # (Auto) 0.6 Eos # (Auto) 0.0 Baso # (Auto) 0.0 Sodium 138 Potassium 4.2 Chloride 99 Carbon Dioxide 23 Anion Gap 20 BUN 8 L Creatinine 0.7 L Est GFR ( Amer) > 60 Est GFR (Non-Af Amer) > 60 Random Glucose 92 Calcium 8.8 Total Bilirubin 0.4 AST 63 H ALT 63 Alkaline Phosphatase 137 H Troponin I < 0.0120 < 0.0120 Total Protein 8.2 Albumin 4.4 Globulin 3.8 Albumin/Globulin Ratio 1.2 Assessment & Plan - Assessment and Plan (Free Text) Plan: Assessment/Plan 1) Chest pain -unspecified -to r/o ACS -EKG: NSR troponin x 3 neg -echo: normal -Estimate Clerk consult suggested. 2) HTN -chronic 3) HLD -chronic 4) DVT Prophylaxis -Lovenox 40 mg sc
--- NOTE | 2018-01-14 12:17 | CP.PCM.CON ---
History of Present Illness - History of Present Illness History of Present Illness: Consultation for evaluation of chest pain HPI: 67 year old male with hx of HTN, dyslipidemia presenting with c/o chest pain described as an aching sensation. First episode was which subsided on its own and then had recurrent episode yesterday associated with SOB which got him concerned. Pain radiated to shoulder. Different in character to his previous episodes of MSK pain. Review of Systems - Review of Systems Systems not reviewed;Unavailable: Acuity of Condition - Constitutional Constitutional: As Per HPI - EENT Eyes: As Per HPI Ears: As Per HPI Nose/Mouth/Throat: As Per HPI - Cardiovascular Cardiovascular: As Per HPI - Respiratory Respiratory: As Per HPI - Gastrointestinal Gastrointestinal: As Per HPI - Genitourinary Genitourinary: As Per HPI - Reproductive: Male Reproductive:Male: As Per HPI - Musculoskeletal Musculoskeletal: As Per HPI - Integumentary Integumentary: As Per HPI - Neurological Neurological: As Per HPI - Psychiatric Psychiatric: As Per HPI - Endocrine Endocrine: As Per HPI - Hematologic/Lymphatic Hematologic: As Per HPI Past Patient History - Infectious Disease Hx of Infectious Diseases: None - Past Medical History & Family History Past Medical History?: Yes - Past Social History Smoking Status: Never Smoked - CARDIAC Hx Cardiac Disorders: Yes Hx Hypercholesterolemia: Yes Hx Hypertension: Yes - PULMONARY Hx Respiratory Disorders: No - NEUROLOGICAL Hx Neurological Disorder: No - HEENT Hx HEENT Problems: Yes Other/Comment: wears glasses - RENAL Hx Chronic Kidney Disease: No - ENDOCRINE/METABOLIC Hx Endocrine Disorders: No - HEMATOLOGICAL/ONCOLOGICAL Hx AIDS: No Hx Human Immunodeficiency Virus (HIV): No - INTEGUMENTARY Hx Dermatological Problems: No - MUSCULOSKELETAL/RHEUMATOLOGICAL Hx Musculoskeletal Disorders: No Hx Falls: No - GASTROINTESTINAL Hx Gastrointestinal Disorders: No - GENITOURINARY/GYNECOLOGICAL Hx Genitourinary Disorders: No - PSYCHIATRIC Hx Psychophysiologic Disorder: No Hx Substance Use: No - SURGICAL HISTORY Hx Appendectomy: Yes Hx Herniorrhaphy: Yes - ANESTHESIA Hx Anesthesia: Yes Hx Anesthesia Reactions: No Hx Malignant Hyperthermia: No Has any member of the family had a problem w/ anesthesia?: No Meds Allergies/Adverse Reactions: Allergies Allergy/AdvReac Type Severity Reaction Status Date / Time No Known Allergies Allergy Verified 03/01/17 12:26 - Medications Medications: Current Medications Aspirin (Ecotrin) 81 mg PO DAILY [facility] Last Admin: 01/14/18 09:15 Dose: 81 mg Atorvastatin Calcium (Lipitor) 10 mg PO HS [facility] Enalapril Maleate (Vasotec) 10 mg PO BID [facility] Last Admin: 01/14/18 09:15 Dose: 10 mg Enoxaparin Sodium (Lovenox) 40 mg SC DAILY [facility] PRN Reason: Protocol Last Admin: 01/14/18 09:14 Dose: 40 mg Physical Exam - Constitutional Appears: Well - Head Exam Head Exam: ATRAUMATIC, NORMAL INSPECTION, NORMOCEPHALIC - Eye Exam Eye Exam: EOMI, Normal appearance, PERRL Pupil Exam: NORMAL ACCOMODATION, PERRL - ENT Exam ENT Exam: Mucous Membranes Moist, Normal Exam - Neck Exam Neck exam: Positive for: Normal Inspection - Respiratory Exam Respiratory Exam: Clear to Auscultation Bilateral, NORMAL BREATHING PATTERN - Cardiovascular Exam Cardiovascular Exam: REGULAR RHYTHM - GI/Abdominal Exam GI & Abdominal Exam: Normal Bowel Sounds, Soft. absent: Tenderness - Extremities Exam Extremities exam: Positive for: normal inspection - Back Exam Back exam: NORMAL INSPECTION - Neurological Exam Neurological exam: Alert, CN II-XII Intact, Normal Gait, Oriented x3, Reflexes Normal - Psychiatric Exam Psychiatric exam: Normal Affect, Normal Mood - Skin Skin Exam: Dry, Intact, Normal Color, Warm Results - Vital Signs Recent Vital Signs: Last Vital Signs Temp 98.1 F 01/14/18 12:00 Pulse 56 L 01/14/18 12:00 Resp 18 01/14/18 12:00 BP 163/85 H 01/14/18 12:00 Pulse Ox 99 01/14/18 12:00 - Labs Result Diagrams: 01/13/18 14:54 01/13/18 14:54 Labs: Laboratory Results - last 24 hr 01/13/18 01/13/18 01/13/18 14:54 14:54 23:03 WBC 7.8 RBC 3.65 L Hgb 11.6 L Hct 34.0 L MCV 93.2 D MCH 31.9 H MCHC 34.2 RDW 13.1 Plt Count 344 MPV 7.9 Neut % (Auto) 79.1 H Lymph % (Auto) 12.4 L [place] % (Auto) 7.4 Eos % (Auto) 0.5 Baso % (Auto) 0.6 Neut # (Auto) 6.1 Lymph # (Auto) 1.0 [place] # (Auto) 0.6 Eos # (Auto) 0.0 Baso # (Auto) 0.0 Sodium 138 Potassium 4.2 Chloride 99 Carbon Dioxide 23 Anion Gap 20 BUN 8 L Creatinine 0.7 L Est GFR ( Amer) > 60 Est GFR (Non-Af Amer) > 60 Random Glucose 92 Calcium 8.8 Total Bilirubin 0.4 AST 63 H ALT 63 Alkaline Phosphatase 137 H Troponin I < 0.0120 < 0.0120 Total Protein 8.2 Albumin 4.4 Globulin 3.8 Albumin/Globulin Ratio 1.2 01/14/18 09:00 WBC RBC Hgb Hct MCV MCH MCHC RDW Plt Count MPV Neut % (Auto) Lymph % (Auto) [place] % (Auto) Eos % (Auto) Baso % (Auto) Neut # (Auto) Lymph # (Auto) [place] # (Auto) Eos # (Auto) Baso # (Auto) Sodium Potassium Chloride Carbon Dioxide Anion Gap BUN Creatinine Est GFR ( Amer) Est GFR (Non-Af Amer) Random Glucose Calcium Total Bilirubin AST ALT Alkaline Phosphatase Troponin I < 0.0120 Total Protein Albumin Globulin Albumin/Globulin Ratio Assessment & Plan (1) Chest pain Assessment and Plan: etiology ? CAD will plan for stress test in am npo p mn asa, bb, statins Status: Acute (2) HTN (hypertension) Assessment and Plan: acei, bb Status: Acute (3) Dyslipidemia Assessment and Plan: statins Status: Acute
--- NOTE | 2018-01-14 16:01 | CARD ---
APPROVED REPORT EXAM: Two-dimensional and M-mode echocardiogram with Doppler and color Doppler. Other Information Quality : GoodRhythm : NSR INDICATION Chest Pain 2D DIMENSIONS IVSd0.99 (0.7-1.1cm)LVDd3.86 (3.9-5.9cm) LVOT Diameter1.98 (1.8-2.4cm)PWd0.83 (0.7-1.1cm) IVSs1.59 (0.8-1.2cm)LVDs2.49 (2.5-4.0cm) FS (%) 35.5 %PWs1.26 (0.8-1.2cm) M-Mode DIMENSIONS Left Atrium (MM)3.35 (2.5-4.0cm)IVSd0.71 (0.7-1.1cm) Aortic Root3.29 (2.2-3.7cm)LVDd6.76 (4.0-5.6cm) Aortic Cusp Exc.1.82 (1.5-2.0cm)PWd0.94 (0.7-1.1cm) IVSs2.00 cmFS (%) 60 % LVDs2.68 (2.0-3.8cm)PWs1.50 cm Mitral Valve MV E Hxxsajac71.6cm/sMV DECEL [id number] A Rqcvmoep76.4cm/s MV CPB00btD/A ratio1.2MVA (PHT)3.81cm2 TDI Lateral E' Peak V14.34cm/sMedial E' Peak V10.10cm/sE/Lateral E'5.1 E/Medial E'7.3 Pulmonary Valve PV Peak Drnqfnus66.8cm/s LEFT VENTRICLE The left ventricle is normal in size. There is normal left ventricular wall thickness. The left ventricular function is normal. The left ventricular ejection fraction is - 65%. There is normal LV segmental wall motion. The left ventricular diastolic function is normal. No left ventricle thrombus noted on this study. There is no ventricular septal defect visualized. There is no left ventricular aneurysm. There is no mass noted in the left ventricle. RIGHT VENTRICLE The right ventricle is normal size. There is normal right ventricular wall thickness. The right ventricular systolic function is normal. ATRIA The left atrium size is normal. There is no thrombus suspected in the left atrium. The right atrium size is normal. The interatrial septum is intact with no evidence for an atrial septal defect. AORTIC VALVE The aortic valve is mildly calcified. No aortic regurgitation is present. There is no aortic valvular stenosis. MITRAL VALVE The mitral valve is normal in structure. There is no evidence of mitral valve prolapse. There is no mitral valve stenosis. Mitral regurgitation is trace. TRICUSPID VALVE The tricuspid valve is normal in structure. There is no tricuspid valve regurgitation noted. There is no tricuspid valve prolapse or vegetation. There is no tricuspid valve stenosis. PULMONIC VALVE The pulmonary valve is normal in structure. There is no pulmonic valvular regurgitation. GREAT VESSELS The aortic root is normal in size. The IVC is normal in size and collapses >50% with inspiration. PERICARDIAL EFFUSION The pericardium appears normal. There is no pleural effusion. <Conclusion> The left ventricle is normal in size and wall thickness. The left ventricular function is normal. The left ventricular ejection fraction is - 65%. The left atrium, right ventricle and right atrium are normal in size. The aortic valve is mildly calcific but not stenotic. The mitral and tricuspid valves are normal. There is trace mitral regurgitation.
--- NOTE | 2018-01-14 17:26 | CARD ---
APPROVED REPORT EKG Measurement Heart [id number] <Conclusion> Normal sinus rhythm Normal ECG
--- NOTE | 2018-01-15 08:44 | CP.PCM.PN ---
Subjective - Date & Time of Evaluation Date of Evaluation: 01/15/18 Time of Evaluation: 07:10 - Subjective Subjective: Patient seen and examined bedside with Dr Joseph. patient denies Chest pain, SOB. Patient will go for stress test in the morning, no overnight events. Objective - Vital Signs/Intake and Output Vital Signs (last 24 hours): Temp Pulse Resp BP Pulse Ox 98.4 F 62 20 117/74 99 01/15/18 08:02 01/15/18 08:02 01/15/18 08:02 01/15/18 08:02 01/15/18 08:02 - Medications Medications: Current Medications Aspirin (Ecotrin) 81 mg PO DAILY [facility] Last Admin: 01/14/18 09:15 Dose: 81 mg Atorvastatin Calcium (Lipitor) 10 mg PO HS [facility] Last Admin: 01/14/18 21:33 Dose: 10 mg Enalapril Maleate (Vasotec) 10 mg PO BID [facility] Last Admin: 01/14/18 16:32 Dose: 10 mg Enoxaparin Sodium (Lovenox) 40 mg SC DAILY [facility] PRN Reason: Protocol Last Admin: 01/14/18 09:14 Dose: 40 mg - Labs Labs: 01/13/18 14:54 01/13/18 14:54 - Constitutional Appears: Non-toxic, No Acute Distress - Head Exam Head Exam: ATRAUMATIC, NORMOCEPHALIC - Eye Exam Eye Exam: Normal appearance - ENT Exam ENT Exam: Mucous Membranes Moist - Respiratory Exam Respiratory Exam: Clear to Ausculation Bilateral. absent: Rhonchi, Wheezes - Cardiovascular Exam Cardiovascular Exam: REGULAR RHYTHM, +S1, +S2 - GI/Abdominal Exam GI & Abdominal Exam: Soft, Normal Bowel Sounds. absent: Tenderness - Extremities Exam Extremities Exam: Normal Inspection - Neurological Exam Neurological Exam: Alert, Awake, Oriented x3 - Psychiatric Exam Psychiatric exam: Normal Affect, Normal Mood - Skin Skin Exam: Intact Assessment and Plan - Assessment and Plan (Free Text) Plan: Assessment/Plan 1) Chest pain -unspecified -to r/o ACS -EKG: NSR troponin x 3 neg -echo: normal -Flow Trader consult suggested. 2) HTN -chronic 3) HLD -chronic 4) DVT Prophylaxis -Lovenox 40 mg sc
[2018-01-15] MEDS: Enoxaparin 40 mg Syringe SC SCH (12:53)
[2018-01-15 19:56] VITALS: RESP 18
--- NOTE | 2018-01-16 08:15 | CP.PCM.PN ---
Subjective - Date & Time of Evaluation Date of Evaluation: 01/16/18 Time of Evaluation: 07:15 - Subjective Subjective: Patient seen and examined at bedside this morning w/ Dr. Joseph. There are no acute events overnight, NAD. The patient denies headaches, chest pain, SOB, abdominal pain, nausea, vomiting, or fever. Objective - Vital Signs/Intake and Output Vital Signs (last 24 hours): Temp Pulse Resp BP Pulse Ox 97.3 F L 63 18 107/70 99 01/16/18 08:00 01/16/18 08:00 01/16/18 08:00 01/16/18 08:00 01/16/18 08:00 - Medications Medications: Current Medications Aspirin (Ecotrin) 81 mg PO DAILY [facility] Last Admin: 01/15/18 12:53 Dose: 81 mg Atorvastatin Calcium (Lipitor) 10 mg PO HS [facility] Last Admin: 01/15/18 21:43 Dose: 10 mg Enalapril Maleate (Vasotec) 10 mg PO BID [facility] Last Admin: 01/15/18 12:53 Dose: 10 mg Enoxaparin Sodium (Lovenox) 40 mg SC DAILY [facility] PRN Reason: Protocol Last Admin: 01/15/18 12:53 Dose: 40 mg - Labs Labs: 01/13/18 14:54 01/13/18 14:54 - Constitutional Appears: Non-toxic, No Acute Distress - Head Exam Head Exam: ATRAUMATIC, NORMAL INSPECTION, NORMOCEPHALIC - Eye Exam Eye Exam: Normal appearance - ENT Exam ENT Exam: Mucous Membranes Moist - Neck Exam Neck Exam: Full ROM. absent: Tenderness - Respiratory Exam Respiratory Exam: Clear to Ausculation Bilateral. absent: Accessory Muscle Use , Decreased Breath Sounds, Rales, Rhonchi, Wheezes, Respiratory Distress - Cardiovascular Exam Cardiovascular Exam: REGULAR RHYTHM, RRR. absent: Tachycardia - GI/Abdominal Exam GI & Abdominal Exam: Soft, Normal Bowel Sounds. absent: Distended, Tenderness - Extremities Exam Extremities Exam: Normal Inspection. absent: Calf Tenderness - Neurological Exam Neurological Exam: Alert, Awake, Oriented x3 - Skin Skin Exam: Dry, Intact, Normal Color, Warm Assessment and Plan (1) Acute chest pain Status: Acute (2) Dyslipidemia Status: Chronic (3) HTN (hypertension) Status: Chronic - Assessment and Plan (Free Text) Plan: c/w present management afebrile, non-tachycardic, normotensive cardiology recommendations appreciated troponins x3 negative c/w home medications for HTN and HLD f/u stress test prophylactic measures: DVT lovenox 40 mg SC daily
[2018-01-16] MEDS: Enoxaparin 40 mg Syringe SC SCH (09:32)
[2018-01-16 12:04] VITALS: BP 104/71; PULSE 87; TEMP 97.4; O2SAT 98
--- NOTE | 2018-01-16 14:25 | CP.PCM.PCO ---
Assessment & Plan - Assessment and Plan (Free Text) Assessment: pt. doing well , denies sob, cp, fever or chills Stress test reviewed by and is negative, pt. cleared for discharge to [facility] today by and Rx for meds provided f/u with outpatient,
--- NOTE | 2018-01-16 15:45 | CP.PCM.DIS ---
Provider - Provider Date of Admission: 01/15/18 15:57 Attending physician: Louie Joseph MD Time Spent in preparation of Discharge (in minutes): 15 Diagnosis - Discharge Diagnosis (1) Acute chest pain Status: Acute (2) Dyslipidemia Status: Chronic (3) HTN (hypertension) Status: Chronic Hospital Course - Lab Results Lab Results: Most Recent Lab Values WBC 7.8 K/uL (4.8-10.8) 01/13/18 14:54 RBC 3.65 Mil/uL (4.40-5.90) L 01/13/18 14:54 Hgb 11.6 g/dL (12.0-18.0) L 01/13/18 14:54 Hct 34.0 % (35.0-51.0) L 01/13/18 14:54 MCV 93.2 fl (80.0-94.0) D 01/13/18 14:54 MCH 31.9 pg (27.0-31.0) H 01/13/18 14:54 MCHC 34.2 g/dL (33.0-37.0) 01/13/18 14:54 RDW 13.1 % (11.5-14.5) 01/13/18 14:54 Plt Count 344 K/uL (130-400) 01/13/18 14:54 MPV 7.9 fl (7.2-11.7) 01/13/18 14:54 Neut % (Auto) 79.1 % (50.0-75.0) H 01/13/18 14:54 Lymph % (Auto) 12.4 % (20.0-40.0) L 01/13/18 14:54 [place] % (Auto) 7.4 % (0.0-10.0) 01/13/18 14:54 Eos % (Auto) 0.5 % (0.0-4.0) 01/13/18 14:54 Baso % (Auto) 0.6 % (0.0-2.0) 01/13/18 14:54 Neut # (Auto) 6.1 K/uL (1.8-7.0) 01/13/18 14:54 Lymph # (Auto) 1.0 K/uL (1.0-4.3) 01/13/18 14:54 [place] # (Auto) 0.6 K/uL (0.0-0.8) 01/13/18 14:54 Eos # (Auto) 0.0 K/uL (0.0-0.7) 01/13/18 14:54 Baso # (Auto) 0.0 K/uL (0.0-0.2) 01/13/18 14:54 Sodium 138 mmol/l (132-148) 01/13/18 14:54 Potassium 4.2 MMOL/L (3.6-5.0) 01/13/18 14:54 Chloride 99 mmol/L (98-107) 01/13/18 14:54 Carbon Dioxide 23 mmol/L (22-30) 01/13/18 14:54 Anion Gap 20 (10-20) 01/13/18 14:54 BUN 8 mg/dl (9-20) L 01/13/18 14:54 Creatinine 0.7 mg/dl (0.8-1.5) L 01/13/18 14:54 Est GFR ( Amer) > 60 01/13/18 14:54 Est GFR (Non-Af Amer) > 60 01/13/18 14:54 Random Glucose 92 mg/dL (75-110) 01/13/18 14:54 Calcium 8.8 mg/dL (8.4-10.2) 01/13/18 14:54 Total Bilirubin 0.4 mg/dl (0.2-1.3) 01/13/18 14:54 AST 63 U/L (17-59) H 01/13/18 14:54 ALT 63 U/L (21-72) 01/13/18 14:54 Alkaline Phosphatase 137 U/L (38-126) H 01/13/18 14:54 Troponin I < 0.0120 ng/mL (0.00-0.120) 01/14/18 09:00 Total Protein 8.2 G/DL (6.3-8.2) 01/13/18 14:54 Albumin 4.4 g/dL (3.5-5.0) 01/13/18 14:54 Globulin 3.8 gm/dL (2.2-3.9) 01/13/18 14:54 Albumin/Globulin Ratio 1.2 (1.0-2.1) 01/13/18 14:54 - Hospital Course Hospital Course: 67 y/o man w/ pmh of HTN, HLD presented w/ complaint of left side chest pain started 2 days prior to ED arrival, aching sensation, lasting seconds, intermittent in 2 occasions and subsided. Chest pain recurred while patient on sitting position, not radiated, no pleuritic, no reproducible, associated with mild SOB, alleviated spontaneously. Patient denies h/o chest pain on exertion , palpitation, nausea, vomiting, abdominal pain. Patient had echo EF 65%, LV normal size, thickness, and function; EKG NSR, no St elevation/depression; CXR showed no acute cardiopulmonary disease processes; and myocardial perfusion scan which was WNL. Patient reports feeling better and denies any episodes of chest pain since admission. The patient was seen by cardiology. The patient has been seen, examined and deemed medically fit for discharge home. The patient is to follow up w/ PMD in 1 week. The patient was DC'ed w/ script for isosorbide mononitrate 30 mg PO daily and metoprolol succinate 25 mg PO daily Discharge Exam - Head Exam Head Exam: ATRAUMATIC, NORMAL INSPECTION, NORMOCEPHALIC - Eye Exam Eye Exam: Normal appearance - ENT Exam ENT Exam: Mucous Membranes Moist - Neck Exam Neck exam: Full Rom - Respiratory Exam Respiratory Exam: Clear to PA & Lateral. absent: Accessory Muscle Use, Decreased Breath Sounds, Rales, Rhonchi, Wheezes, Respiratory Distress - Cardiovascular Exam Cardiovascular Exam: REGULAR RHYTHM, RRR. absent: Bradycardia, Tachycardia, Diastolic murmur, Rubs, Systolic Murmur - GI/Abdominal Exam GI & Abdominal Exam: Normal Bowel Sounds, Soft. absent: Distended, Tenderness - Neurological Exam Neurological exam: Alert, Normal Gait, Oriented x3 - Skin Skin Exam: Dry, Intact, Normal Color, Warm Discharge Plan - Discharge Medications Prescriptions: Isosorbide Mononitrate ER [Imdur ER] 30 mg PO DAILY #30 tab Metoprolol Succinate [Toprol XL] 25 mg PO DAILY #30 tab - Follow Up Plan Condition: STABLE Disposition: HOME/ ROUTINE Instructions: Chest Pain (DC) Additional Instructions: pt. doing well , denies sob, cp, fever or chills Stress test reviewed by and is negative, pt. cleared for discharge to [facility]me today by and Rx for meds provided f/u with outpatient, in 1 week Referrals: Louie Joseph MD [Staff Provider] - Greg Esposito MD [Staff Provider] -
--- NOTE | 2018-01-16 16:50 | CP.PCM.PN ---
Subjective - Date & Time of Evaluation Date of Evaluation: 01/15/18 Time of Evaluation: 11:00 - Subjective Subjective: stress test today Objective - Vital Signs/Intake and Output Vital Signs (last 24 hours): Temp Pulse Resp BP Pulse Ox 97.4 F L 87 18 104/71 98 01/16/18 12:00 01/16/18 12:00 01/16/18 12:00 01/16/18 12:00 01/16/18 12:00 - Labs Labs: 01/13/18 14:54 01/13/18 14:54 - Constitutional Appears: Well - Head Exam Head Exam: ATRAUMATIC, NORMAL INSPECTION, NORMOCEPHALIC - Eye Exam Eye Exam: EOMI, Normal appearance, PERRL Pupil Exam: NORMAL ACCOMODATION, PERRL - ENT Exam ENT Exam: Mucous Membranes Moist, Normal Exam - Neck Exam Neck Exam: Full ROM, Normal Inspection. absent: Lymphadenopathy - Respiratory Exam Respiratory Exam: Clear to Ausculation Bilateral, NORMAL BREATHING PATTERN - Cardiovascular Exam Cardiovascular Exam: REGULAR RHYTHM, +S1, +S2. absent: Murmur - GI/Abdominal Exam GI & Abdominal Exam: Soft, Normal Bowel Sounds. absent: Tenderness - Extremities Exam Extremities Exam: Full ROM, Normal Capillary Refill, Normal Inspection. absent : Joint Swelling, Pedal Edema - Back Exam Back Exam: NORMAL INSPECTION - Neurological Exam Neurological Exam: Alert, Awake, CN II-XII Intact, Normal Gait, Oriented x3 - Psychiatric Exam Psychiatric exam: Normal Affect, Normal Mood - Skin Skin Exam: Dry, Intact, Normal Color, Warm Assessment and Plan (1) Chest pain Assessment & Plan: stress test today Status: Acute (2) HTN (hypertension) Status: Chronic (3) Dyslipidemia Status: Chronic
--- NOTE | 2018-01-16 16:52 | CP.PCM.PN ---
Subjective - Date & Time of Evaluation Date of Evaluation: 01/16/18 Time of Evaluation: 15:00 - Subjective Subjective: cp free stress test -ve Objective - Vital Signs/Intake and Output Vital Signs (last 24 hours): Temp Pulse Resp BP Pulse Ox 97.4 F L 87 18 104/71 98 01/16/18 12:00 01/16/18 12:00 01/16/18 12:00 01/16/18 12:00 01/16/18 12:00 - Labs Labs: 01/13/18 14:54 01/13/18 14:54 - Constitutional Appears: Well - Head Exam Head Exam: ATRAUMATIC, NORMAL INSPECTION, NORMOCEPHALIC - Eye Exam Eye Exam: EOMI, Normal appearance, PERRL Pupil Exam: NORMAL ACCOMODATION, PERRL - ENT Exam ENT Exam: Mucous Membranes Moist, Normal Exam - Neck Exam Neck Exam: Full ROM, Normal Inspection. absent: Lymphadenopathy - Respiratory Exam Respiratory Exam: Clear to Ausculation Bilateral, NORMAL BREATHING PATTERN - Cardiovascular Exam Cardiovascular Exam: REGULAR RHYTHM, +S1, +S2. absent: Murmur - GI/Abdominal Exam GI & Abdominal Exam: Soft, Normal Bowel Sounds. absent: Tenderness - Extremities Exam Extremities Exam: Full ROM, Normal Capillary Refill, Normal Inspection. absent : Joint Swelling, Pedal Edema - Back Exam Back Exam: NORMAL INSPECTION - Neurological Exam Neurological Exam: Alert, Awake, CN II-XII Intact, Normal Gait, Oriented x3 - Psychiatric Exam Psychiatric exam: Normal Affect, Normal Mood - Skin Skin Exam: Dry, Intact, Normal Color, Warm Assessment and Plan (1) Chest pain Assessment & Plan: stress test -ve stable to [place] home on asa, bb, statins Status: Acute (2) HTN (hypertension) Status: Chronic (3) Dyslipidemia Status: Chronic
--- NOTE | 2018-01-20 09:42 | CARD ---
APPROVED REPORT Protocol: PURNIMA Test Type: Stress Nuclear Medications: Atrovastatin 10mg [id number] ASA 81mg Medical History: Hypertension, Cholesterol, CAD, Target HR: 153 bpm Resting ECG: normal Resting Heart Rate: 75 bpm Resting Blood Pressure: 134/71mmHg submaximum (85%): 130 bpm TEST SUMMARY [id number]/71.0. [id number]/[id number]. PRETESTHYPERV.00:[id number]/71.0. PRETESTWARM-UP60:[id number]/71.0. EXERCISESTAGE 103:[id number]/80.0. EXERCISESTAGE 203:[id number]/90.0. EXERCISESTAGE 301:[id number]/90.0. [id number]:[id number]/74.0. POST EXERCISE Reason for Termination: Fatigue Target HR: Yes Max HR: 153 bpm 100% of Maximum Predicted HR: 153 bpm Exercise duration: 07:33 min:sec, 3 Stage Exercise capacity: 9.4METs Max Blood Pressure: 186/90mmHg Blood Pressure response to exercise: normal resting BP - appropriate response Heart Rate response to exercise: appropriate Chest Pain: No, none Angina index: 0 Arrhythmia: No, none ST Change: Yes, Depression upsloping Deviation: 0 mm Clinical Indications Under Appropriate Use Criteria 67 year old female with atypical chest pain with hx of HTN and dyslipidemia Stress EKG Interpretation Inconclusive with upsloping ST depressions in inferolateral leads ( with early repolarization pattern pre-exercise) RESTING ECG Rhythm: Sinus Conduction: Normal Arrhythmias: None Repolarization: Early repolarization STRESS ECG Rhythm: Sinus Conduction: Normal Arrhythmias: None Repolarization: ST depression Mildly positive ST-Segment changes. ST-Sement Location: Inferior. Timing of ST-Segment Depression: Stress only ST-Segment Configuration: Upsloping ST-Segment Depression Amount: 1.5 mm Number of Leads with ST-Segment Change: 6 Stress EKG shows changes suggestive of ischemia. EXAM: Myocardial Perfusion REST/STRESS Image QualityGood Imaging Protocol The imaging protocol used to acquire images was Rest Tc-99m/stress Tc-99m 1 day Rest Spect myocardial perfusion imaging was performed in supine position 30 minutes following the injection of 10 mCi of Tc-99 Myoview. Time of rest injection: 8:12 Time of rest imagin:44 At peak stress, the patient was injected intravenously with mCi of Tc-99 tetrofosmin after an infusion time of minutes and seconds. Time of stress injection: 11:13 Time of stress imagin:10 Gated Stress Spect was performed 57 minutes after intravenous Tc-99 Myoview injection. The images were gated to evaluate regional wall motion and calculate ventricular ejection fraction. NUCLEAR IMAGE INTERPRETATION Study quality was fair. Left Ventricular size was Normal at Rest and Stress. Lung uptake was Normal. Left Ventricular ejection fraction is 79%. LV Perfusion 1 Perfusion Defect Location: basal inferior Perfusion Defect Size: Small (1-2 segments) Perfusion Defect Severity: Mild Type of Perfusion Defect: Partially Reversible TCD/TID: No CONCLUSION 1. - Small basal inferior defect with reversibility and EKG changes post exercise suggestive of ischemia Recommendation - Further invasive work up if clinically indicated - GDMT for CAD
== END 2018-01-16 15:38 | disposition home or self-care (01) | DRG 313 ==
LOC: H.ER 12:24 → H.ERHOLD 15:57 → H.TEL 18:52 → OBSVTOIN 01-15 15:57
PROVIDERS: ADMIT Internal Medicine; ATTEND Internal Medicine
DX: R07.9 Chest pain, unspecified (principal); I10 Essential (primary) hypertension; E78.00 Pure hypercholesterolemia, unspecified; E78.5 Hyperlipidemia, unspecified

== ENCOUNTER 2018-04-26 16:12 | Emergency (ER) | payer MEDICARE ==
[2018-04-26 16:19] VITALS: BP 164/88; PULSE 106; RESP 17; TEMP 98.6; O2SAT 100
--- NOTE | 2018-04-26 17:03 | ED PDOC ---
Lower Extremity Pain/Injury Time Seen by Provider: 04/26/18 16:25 Chief Complaint (Nursing): Lower Extremity Problem/Injury Chief Complaint (Provider): Lower Extremity Problem/Injury History Per: Patient History/Exam Limitations: no limitations Onset/Duration Of Symptoms: Days ( x 1) Current Symptoms Are (Timing): Still Present Additional Complaint(s): 67 year old male presents to the ED with left ankle pain since awaking this morning. Patient denies any falls and a history of gout. PMD: none provided Past Medical History Reviewed: Historical Data, Nursing Documentation, Vital Signs Vital Signs: Last Vital Signs Temp 98.6 F 04/26/18 16:17 Pulse 106 H 04/26/18 16:17 Resp 17 04/26/18 16:17 BP 164/88 H 04/26/18 16:17 Pulse Ox 100 04/26/18 16:17 - Medical History PMH: HTN, Hypercholesterolemia, Hyperlipidemia Denies: HIV, Chronic Kidney Disease - Surgical History Surgical History: Appendectomy, Hernia Repair - Family History Family History: States: Unknown Family Hx - Immunization History Hx Tetanus Toxoid Vaccination: No Hx Influenza Vaccination: No Hx Pneumococcal Vaccination: No - Home Medications Home Medications: Ambulatory Orders Medication Instructions Recorded Aspirin [Ecotrin] 81 mg PO DAILY 01/13/18 Atorvastatin [Lipitor] 10 mg PO HS 01/13/18 Enalapril Maleate [Vasotec] 10 mg PO BID 01/13/18 Isosorbide Mononitrate ER [Imdur 30 mg PO DAILY #30 tab 01/16/18 ER] Metoprolol Succinate XL [Toprol XL] 25 mg PO DAILY #30 tab 01/16/18 Ibuprofen [Motrin] 600 mg PO Q8 PRN #21 tab 04/26/18 - Allergies Allergies/Adverse Reactions: Allergies Allergy/AdvReac Type Severity Reaction Status Date / Time No Known Allergies Allergy Verified 03/01/17 12:26 Review of Systems ROS Statement: Except As Marked, All Systems Reviewed And Found Negative Musculoskeletal: Positive for: Foot Pain (left ankle pain) Physical Exam - Reviewed Nursing Documentation Reviewed: Yes Vital Signs Reviewed: Yes - Physical Exam Appears: Positive for: Non-toxic, No Acute Distress Head Exam: Positive for: ATRAUMATIC, NORMAL INSPECTION, NORMOCEPHALIC Skin: Positive for: Normal Color, Warm, Dry Eye Exam: Positive for: EOMI, Normal appearance, PERRL Neck: Positive for: Normal, Painless ROM, Supple Cardiovascular/Chest: Positive for: Tachycardia. Negative for: Murmur Respiratory: Positive for: Normal Breath Sounds. Negative for: Wheezing, Respiratory Distress Gastrointestinal/Abdominal: Positive for: Normal Exam, Soft. Negative for: Tenderness Extremity: Positive for: Normal ROM, Tenderness (and warmth to left medial malleolus). Negative for: Other (tenderness to foot) Neurologic/Psych: Positive for: Alert, Oriented (x 3). Negative for: Motor/ Sensory Deficits - ECG O2 Sat by Pulse Oximetry: 100 (RA) Pulse Ox Interpretation: Normal - Progress ED Course And Treament: XRY OF ANKLE LEFT: IMPRESSION: No acute fractures. If symptoms persist or occult fracture suspected clinically recommend repeat radiographs in 7-10 days as most fractures should become radiographically evident in this timeframe. Moderate medial and mild lateral soft tissue swelling URIC ACID WNL PATIENT TO F/U WITH PODIATRY THIS WEEK FOR FURTHER EVALUATION GIVEN MOTRIN 600MG IN ED Medical Decision Making Medical Decision Makin:34 Plan: --left ankle x-ray --Motrin 600 mg PO --uric acid Scribe Attestation: Documented by Michelle Underwood, acting as a scribe for Konstantin Covarrubias PA-C Provider Scribe Attestation: All medical record entries made by the Scribe were at my direction and personally dictated by me. I have reviewed the chart and agree that the record accurately reflects my personal performance of the history, physical exam, medical decision making, and the department course for this patient. I have also personally directed, reviewed, and agree with the discharge instructions and disposition. Disposition - Clinical Impression Clinical Impression: Ankle pain - Patient ED Disposition Is Patient to be Admitted: No - Disposition Referrals: Podiatry Clinic [Outside] Disposition: Routine/Home Disposition Time: 17:37 Condition: FAIR Prescriptions: Ibuprofen [Motrin] 600 mg PO Q8 PRN #21 tab PRN Reason: Pain, Moderate (4-7) Instructions: Ankle Sprain (DC) Print Language: URDU
--- NOTE | 2018-04-26 17:20 | RAD ---
Date of service: 04/26/2018 PROCEDURE: Left Ankle Radiographs. HISTORY: ankle pain COMPARISON: None FINDINGS: BONES: No definitive evidence of acute displaced fracture nor dislocation the osseous structures appear intact. Talar dome intact. . Tiny plantar and posterior surface calcaneal enthesophytes are present JOINTS: No significant osteoarthritis. Ankle mortise maintained. SOFT TISSUES: There is moderate medial and mild lateral soft tissue swelling. Vascular calcifications are noted. Suspect tiny joint effusion OTHER FINDINGS: None. IMPRESSION: No acute fractures. If symptoms persist or occult fracture suspected clinically recommend repeat radiographs in 7-10 days as most fractures should become radiographically evident in this timeframe. Moderate medial and mild lateral soft tissue swelling
== END 2018-04-26 18:10 | disposition home or self-care (01) ==
LOC: H.ER 16:12
DX: M25.572 Pain in left ankle and joints of left foot (principal); E78.00 Pure hypercholesterolemia, unspecified; I10 Essential (primary) hypertension; Z79.82 Long term (current) use of aspirin